=== PATIENT | male | born 1970 | race African-American/Black ===

== ENCOUNTER 2018-12-30 14:00 | Emergency (ER) | payer SELFPAY ==
[~2018-12-30] VITALS: Ht 175.3 cm; Wt 76.1 kg
[2018-12-30 14:10] VITALS: BP 137/85
[2018-12-30] MEDS ORDERED: DEXAMETHASONE 4 MG TABLET ONE (14:26)
[2018-12-30] MEDS ORDERED: DEXAMETHASONE 4 MG TABLET PO ONE (14:30)
== END 2018-12-30 15:12 | disposition home or self-care (01) ==
LOC: ED 15:00
DX: J02.8 Acute pharyngitis due to other specified organisms (principal); B97.89 Other viral agents as the cause of diseases classified elsewhere; F17.200 Nicotine dependence, unspecified, uncomplicated
CPT/HCPCS: 87081; 87147; 87880; 99283

== ENCOUNTER 2019-01-02 21:01 | Emergency (ER) | payer OTHER ==
[~2019-01-02] VITALS: Ht 180.3 cm; Wt 77.0 kg
[2019-01-02 21:03] VITALS: BP 134/85
--- NOTE | 2019-01-02 21:59 | NUR ---
Patient/Caregiver given discharge instructions and they have confirmed that they understand the instructions. Patient ambulatory with steady gait.
== END 2019-01-02 22:02 | disposition home or self-care (01) ==
LOC: ED 21:27
DX: F20.89 Other schizophrenia (principal)
CPT/HCPCS: 99283